=== PATIENT | male | born 1955 | race African-American/Black ===

== ENCOUNTER 2017-04-13 17:01 | Inpatient (IN) | payer MEDICARE, MEDICAID ==
[~2017-04-13] VITALS: Ht 172.7 cm; Wt 76.2 kg
--- NOTE | 2017-04-13 17:10 | NUR ---
pt medically cleared. will be transfer to u at 1830 per [facility] stock supervisor ok.
[2017-04-13] MEDS ORDERED: TRAV5DRO EACHEYE (17:11)
[2017-04-13] MEDS ORDERED: BUPR150T5 PO (17:11)
[2017-04-13] MEDS ORDERED: TRAM50TA2 PO (17:11)
[2017-04-13] MEDS ORDERED: AMPH10CA3 PO (17:11)
[2017-04-13] MEDS ORDERED: TAMS0.4C34 PO (17:11)
[2017-04-13] MEDS ORDERED: LORA2TAB PO (17:11)
[2017-04-13] MEDS ORDERED: METO-356 PO (17:11)
[2017-04-13] MEDS ORDERED: AMLO10TA2 PO (17:11)
[2017-04-13] MEDS ORDERED: FLUT1DIS28 IH (17:11)
[2017-04-13] MEDS ORDERED: OXYC40TA50 PO (17:11)
[2017-04-13] MEDS ORDERED: ALBU8.5H8 IH (17:11)
[2017-04-13] MEDS ORDERED: RISP0.5T20 PO (17:11)
--- NOTE | 2017-04-13 17:35 | NUR ---
hospital dinner tray provided for pt.
--- NOTE | 2017-04-13 18:30 | NUR ---
PT ARRIVED TO UNIT AT THIS TIME ON GURNEY ACCOMPANIED BY ER NURSE. CALM AND COOPERATIVE AT THIS TIME.
[2017-04-13 18:40] VITALS: BP 137/81
[2017-04-13] MEDS ORDERED: MAGNESIUM HYDROXIDE 30 ML LIQUID UDC PO PRN (18:45)
[2017-04-13] MEDS ORDERED: ACETAMINOPHEN 325 MG TABLET PO PRN (18:45)
[2017-04-13] MEDS ORDERED: MAG HYDROX/AL HYDROX/SIMETH 30 ML LIQUID UDC PO PRN (18:45)
[2017-04-13] MEDS ORDERED: TEMAZEPAM 7.5 MG CAPSULE PO PRN (18:45)
--- NOTE | 2017-04-13 20:00 | NUR ---
RECEIVED PATIENT IN HIS ROOM IN BED. HE WAS NOTED A/O X 4. HE WAS NOTED CALM AND COOPERATIVE. ABLE TO WALK USING A FRONT WHEEL WALKER. CONTINUE WITH SI. HE STATED "I WILL RUN INTO TRAFFIC." HOWEVER, HE WAS ABLE TO CFS. HE IS ON A 5150 HOLD FOR DTS. HOLD STARTED ON 04/13/17 AT 1420 AND WILL END ON 04/16/17 AT 1420. PATIENT WAS MEDICALLY CLEARED AT [facility] AND [facility] AT APPROX 1830. PATIENT WAS TESTED POSITIVE FOR URINE COCAINE. HE STATED THAT HE USE COCAINE ONE WEEK AGO. PATIENT WAS COMPLIANT WITH ADMISSION PAPERS. PT IS UNDER THE CARE OF DR MENDES. WILL CONTINUE TO MONITOR.
--- NOTE | 2017-04-13 20:30 | NUR ---
PATIENT REFUSED BODY ASSESSMENT. ENCOURAGED X1, HOWEVER, INEFFECTIVE. HE STATED, "THERE IS NOTHING WRONG WITH MY BODY." WILL CONTINUE TO MONITOR.
[2017-04-13 20:53] VITALS: BP 119/69
[2017-04-13] MEDS ORDERED: TRAMADOL HCL 50 MG TABLET PO PRN (21:15)
[2017-04-13] MEDS ORDERED: Medication Not On Formulary EA (Oxycodone Hcl (Oxycontin) 40 MG) PO SCH (21:15)
[2017-04-13] MEDS: LAMOTRIGINE 25 MG TABLET PO SCH (21:15)
[2017-04-13] MEDS: AMLODIPINE 10 MG TABLET PO SCH (21:15)
[2017-04-13] MEDS ORDERED: MIRTAZAPINE 15 MG TABLET ONE (21:27)
[2017-04-13] MEDS: MIRTAZAPINE 15 MG TABLET PO SCH (21:56)
[2017-04-13] MEDS ORDERED: AMLODIPINE 5 MG TABLET ONE (22:09)
--- NOTE | 2017-04-13 22:15 | NUR ---
MEDICATION WERE RECONCILED BY DR RAJPUT. PT WAS SEEN AND EVALUATED BY DR. MENDES. PT WAS PUT ON LAMICTAL 25MG PO TID AND REMERON 15MG QHS. PATIENT REFUSED LAMICTAL AND ALSO REFUSED AMLODIPINE 10MG (B/P STABLE AT THIS TIME). HE WAS ALSO OFFERED TRAMADOL 50MG PO PRN FOR C/O LOWER BACK PAIN 09/09, HOWEVER, HE REFUSED. WILL CONTINUE TO MONITOR.
[2017-04-14] MEDS ORDERED: ALBUTEROL SULFATE 8 GM HFA.AER.AD IH SCH
[2017-04-14 01:44] VITALS: BP 119/69
[2017-04-14] MEDS: LORAZEPAM 1 MG TABLET PO PRN ×3 (03:49→20:26)
--- NOTE | 2017-04-14 06:00 | NUR ---
PATIENT SLEPT FOR APPROX 8.30HRS THROUGH THE NIGHT. SKIN ASSESSMENT DONE. SKIN WARM DRY AND INTACT. PT NOTED DEMANDING, NEEDY. WILL CONTINUE TO MONITOR
[2017-04-14 07:30] VITALS: BP 119/80
[2017-04-14] MEDS: TAMSULOSIN HCL 0.4 MG CAP.SR.24H PO SCH (08:50)
[2017-04-14] MEDS: METOPROLOL SUCCINATE XL 25 MG TAB.SR.24H PO SCH (08:57)
[2017-04-14] MEDS: FLUTICASONE/VILANTEROL 1 EACH BLST.W.DEV INH SCH (08:57)
[2017-04-14] MEDS: LAMOTRIGINE 25 MG TABLET PO SCH ×3 (08:57→16:26)
[2017-04-14] MEDS ORDERED: FLUTICASONE/SALMETEROL 250/50 INHALER IH SCH (09:00)
[2017-04-14] MEDS ORDERED: ALBUTEROL SULFATE 2.5 MG/3 ML NEBU NEB PRN (10:00)
[2017-04-14] MEDS ORDERED: HYDROCODONE/APAP 5-325MG TABLET PO PRN (12:00)
--- NOTE | 2017-04-14 15:03 | NUR ---
Noted patient was pretended to fall on the hallway,camera was reviewed , he put him self on the floor.vital sign taken,b/p 120/75,98.7f 80, 19 .MD notified.x-ray was ordered.
[2017-04-14] MEDS ORDERED: OXYCODONE HCL 20 MG TAB.SR.12H PO SCH (17:00)
[2017-04-14] MEDS ORDERED: OXYCODONE HCL 40 MG TAB.SR.12H PO SCH ×2 (17:00)
[2017-04-14 17:04] VITALS: BP 120/75
[2017-04-14 19:47] VITALS: BP 135/76
--- NOTE | 2017-04-14 20:00 | NUR ---
PATIENT REFUSED BLOOD DRAWN, MULTIPLE REDIRECTION GIVEN. YET INEFFECTIVE.
[2017-04-14] MEDS: MIRTAZAPINE 15 MG TABLET PO SCH (20:26)
[2017-04-14] MEDS: AMLODIPINE 10 MG TABLET PO SCH (21:00)
[2017-04-14] MEDS ORDERED: TRAVOPROST 0.004% OPHT DROP 2.5 ML BOTTLE EACHEYE SCH (21:00)
[2017-04-14] MEDS: LATANOPROST OPHT DROP 2.5 ML BOTTLE EACHEYE SCH (21:02)
--- NOTE | 2017-04-14 21:30 | NUR ---
RECEIVED PATIENT IN HIS ROOM. HE WAS NOTED A/O X 3. ABLE TO MAKE HIS NEEDS KNOW. CONTINENT OF BLADDER AND BOWEL. HE IS NOW USING A WHEELCHAIR FOR MOBILITY. HE WAS NOTED IRRITABLE, ARGUMENTATIVE, HE STATED, "THE DOCTOR IS NOT GIVING ME THE RIGHT AMOUNT OF MY PAIN MEDICATION." "HE DOES NOT GET IT." PT WAS NOTED WITH LABILE BX. DEPRESSED MOOD, BLUNTED AFFECT. NEEDY. HE DENIES SI/HI OR THOUGHT AND PLAN TO HARM SELF. HE IS ABLE TO CONTRACT FOR SAFETY. PT REFUSED NORVASC 10MG PO QHS FOR HTN. B/P:135/76 AND PULSE 70BPM. BUT ABLE TO COMPLY WITH REST OF QHS MEDICATION INCLUDING REMERON 15MG PO QHS. HE REQUESTED ATIVAN FOR AGITATION. ATIVAN 1MG PO PRN WAS GIVEN AT APPROX 2030 PER NURSE ASSESSMENT. SAFETY EMPHASIS, FALL PRECAUTION. PT WAS REASSURED. WILL CONTINUE TO MONITOR.
[2017-04-15] MEDS ORDERED: OXYCODONE HCL 20 MG TAB.SR.12H PO SCH (06:00)
[2017-04-15] MEDS: OXYCODONE HCL 20 MG TAB.SR.12H PO SCH ×2 (06:17→17:02)
--- NOTE | 2017-04-15 06:38 | NUR ---
PATIENT REFUSED BLOOD DRAWN. MULTIPLE REDIRECTION GIVEN, YET INEFFECTIVE. WILL CONTINUE TO ENCOURAGER.
--- NOTE | 2017-04-15 06:47 | NUR ---
PATIENT SLEPT FOR APPROX 7.00 HRS THROUGH THE NIGHT. OXYCONTIN 20MG PO Q12HRS WAS GIVEN ROUTINE. WILL CONTINUE TO MONITOR CLOSELY.
[2017-04-15 07:39] LABS: BASOPHILS # (AUTO) 0.1 K/uL (0.0-8.0); BASOPHILS % (AUTO) 1.1 % (0.0-2.0); EOSINOPHILS # (AUTO) 0.1 K/uL (0.0-0.7); EOSINOPHILS % (AUTO) 2.1 % (0.0-7.0); HEMATOCRIT 40.9 % (36.7-47.1); HEMOGLOBIN 13.8 g/dL (12.5-16.3); LYMPHOCYTES # (AUTO) 1.6 K/uL (20.0-40.0); LYMPHOCYTES % (AUTO) 28.5 % (20.5-51.5); MEAN CORPUSCULAR HEMOGLOBIN 31.5 uug (23.8-33.4); MEAN CORPUSCULAR HGB CONC 34 g/dL (32.5-36.3); MEAN CORPUSCULAR VOLUME 93.7 fL (73.0-96.2); MONOCYTES # (AUTO) 0.9 K/uL (2.0-10.0); MONOCYTES % (AUTO) 15.4 % (0.0-11.0); NEUTROPHILS % (AUTO) 52.9 % (38.5-71.5); PLATELET COUNT (AUTO) 264 K/uL (152-348); RED BLOOD CELL COUNT(AUTO) 4.37 MIL/uL (4.06-5.63); WHITE BLOOD COUNT (AUTO) 5.7 K/uL (3.6-10.2)
[2017-04-15 07:45] VITALS: BP 136/88
[2017-04-15 07:51] LABS: BILIRUBIN,TOTAL 0.8 mg/dL (0.2-1.0); CREATININE 1.1 mg/dL (0.6-1.3); PHOSPHOROUS 3.7 mg/dL (2.5-4.9); POTASSIUM 4.2 mmol/L (3.5-5.1); TOTAL PROTEIN, SERUM 7.1 g/dL (6.4-8.2)
[2017-04-15] MEDS: METOPROLOL SUCCINATE XL 25 MG TAB.SR.24H PO SCH (08:32)
[2017-04-15] MEDS: FLUTICASONE/VILANTEROL 1 EACH BLST.W.DEV INH SCH (08:32)
[2017-04-15] MEDS: TAMSULOSIN HCL 0.4 MG CAP.SR.24H PO SCH (08:32)
[2017-04-15] MEDS: LAMOTRIGINE 25 MG TABLET PO SCH ×3 (08:32→17:01)
[2017-04-15 08:43] LABS: EOSINOPHILS % (MANUAL) 3 % (0-8); LYMPHOCYTES % (MANUAL) 32 % (20-40); MONOCYTES % (MANUAL) 7 % (2-10); NEUTROPHILS % (MANUAL) 58 % (42-75)
[2017-04-15] MEDS: LORAZEPAM 1 MG TABLET PO PRN ×2 (13:12→23:49)
--- NOTE | 2017-04-15 15:39 | NUR ---
Firearms Report: Physician Office Nurse completed and submitted [employer] Firearms Report on 04/15/17.
[2017-04-15 16:40] VITALS: BP 126/66
[2017-04-15] MEDS: LATANOPROST OPHT DROP 2.5 ML BOTTLE EACHEYE SCH (20:34)
[2017-04-15] MEDS: MIRTAZAPINE 15 MG TABLET PO SCH (20:34)
[2017-04-15] MEDS: AMLODIPINE 10 MG TABLET PO SCH (20:40)
[2017-04-15 20:47] VITALS: BP 125/57
--- NOTE | 2017-04-15 21:15 | NUR ---
RECEIVED PATIENT IN HIS ROOM. HE WAS NOTED A/O X 3. EASILY IRRITABLE, DEMANDING. HE DENIES SI OR PLAN TO HARM SELF. HE REFUSED NORVASC 10MG PO QHS; HOWEVER TOOK REST OF QHS MEDICATION. SAFETY EMPHASIS TO CONTINUE USING WHEELCHAIR FOR MOBILITY. FALL PRECAUTION. WILL CONTINUE TO MONITOR CLOSELY.
--- NOTE | 2017-04-15 23:50 | NUR ---
PATIENT CAME TO THE NURSING STATION C/O SEVERE PAIN IN HIS RIGHT WRIST. X RAY RIGHT WRIST WAS ORDERED STAT. AWAITING FOR RESULTS. HE WAS ALSO NOTED YELLING, DEMANDING, ANXIOUS AGITATIVE. ATIVAN 1MG PO PRN WAS GIVEN FOR AGITATION. WILL CONTINUE TO MONITOR CLOSELY.
[2017-04-16] MEDS: OXYCODONE HCL 20 MG TAB.SR.12H PO SCH (05:01)
[2017-04-16 08:00] VITALS: BP 120/75
[2017-04-16] MEDS: METOPROLOL SUCCINATE XL 25 MG TAB.SR.24H PO SCH ×2 (09:00→09:46)
[2017-04-16] MEDS: LAMOTRIGINE 25 MG TABLET PO SCH ×3 (09:47→18:12)
[2017-04-16] MEDS: TAMSULOSIN HCL 0.4 MG CAP.SR.24H PO SCH (09:47)
[2017-04-16] MEDS: FLUTICASONE/VILANTEROL 1 EACH BLST.W.DEV INH SCH (09:55)
--- NOTE | 2017-04-16 11:34 | NUR ---
Initial Discharge Instructions: Pt currently resides in a homeless snf [[address] [place] [address]; [phone]]. Pt reports that he would like to be placed in a Rehab facility in order to prepare for a back surgery; however, is willing to return to the snf if no placement can be found. Pt is not consenting to contact his son, Melvin Araiza ([phone]) at this time. SW will speak with pt and MD regarding appropriate discharge plans for this patient. SW will form a safe and proper discharge.
[2017-04-16] MEDS: OXYCODONE HCL 5 MG TABLET PO PRN ×2 (12:44→20:39)
[2017-04-16 16:00] VITALS: BP 135/82
--- NOTE | 2017-04-16 16:11 | NUR ---
[facility] Note: Subjective: "Nurses just don't care. They say I'll meet you in 20 minutes then they leave you alone. Why do they do that?" Objective: Pt appeared frustrated and angry as evidenced by his intense eye contact, loud tone, and complaints about his extended hold, which is a lie. Pt came to group late, leaving to make a phone call then again to use the restroom. Pt nodded in agreement when the other group member spoke about negligent care. Assessment: SW will encourage pt to establish coping skills for his suicidal ideation and chronic pain. Plan: Pt will attend group again tomorrow. Pt will advocate for himself if he feels he is not getting the treatment he deserves.
[2017-04-16] MEDS: OXYCODONE HCL 10 MG TAB.SR.12H PO SCH (17:28)
[2017-04-16] MEDS ORDERED: OXYCODONE HCL 20 MG TAB.SR.12H PO SCH (18:00)
[2017-04-16] MEDS: AMLODIPINE 10 MG TABLET PO SCH (21:00)
[2017-04-16] MEDS: LATANOPROST OPHT DROP 2.5 ML BOTTLE EACHEYE SCH (21:54)
[2017-04-16] MEDS: MIRTAZAPINE 15 MG TABLET PO SCH (21:55)
[2017-04-17] MEDS: OXYCODONE HCL 5 MG TABLET PO PRN ×3 (02:47→15:32)
[2017-04-17] MEDS: LORAZEPAM 1 MG TABLET PO PRN (03:36)
[2017-04-17] MEDS: OXYCODONE HCL 10 MG TAB.SR.12H PO SCH (06:15)
[2017-04-17 07:30] VITALS: BP 128/64
[2017-04-17] MEDS: FLUTICASONE/VILANTEROL 1 EACH BLST.W.DEV INH SCH (09:00)
[2017-04-17] MEDS: METOPROLOL SUCCINATE XL 25 MG TAB.SR.24H PO SCH (09:00)
[2017-04-17] MEDS: TAMSULOSIN HCL 0.4 MG CAP.SR.24H PO SCH (09:11)
[2017-04-17] MEDS: LAMOTRIGINE 25 MG TABLET PO SCH ×2 (09:18→14:37)
--- NOTE | 2017-04-17 12:22 | NUR ---
Discharge Note: Patient was released by the [facility] during his 14-day Probable Cause Hearing. Patient will be discharged to [facility] [[address] [place] [id number]; ] via ambulance. Spoke with Kim at the facility who states they are ready to accept the patient today. Patient is aware and agreeable with discharge plans. Patient will be following-up with Dr. Cronin (Attorney) and Dr. Cao (Psychiatrist) at the facility. Patient was provided with a brief substance abuse intervention and referred to [facility] , [facility] , and [facility] .
--- NOTE | 2017-04-17 16:10 | NUR ---
Gps/Land Commissioner-Call [facility], report given to Angélica Norton. All belongings was given back to patient. Adequate relief from his lower back pain. Discharged via ambulance in good spirit with no new c/o offered.
== END 2017-04-17 16:15 | DRG 885 ==
LOC: ER 17:02 → GPS 18:23
PROVIDERS: ADMIT Psychiatry & Neurology Psychiatry
DX: F31.32 Bipolar disorder, current episode depressed, moderate (principal); B19.20 Unspecified viral hepatitis C without hepatic coma; G89.29 Other chronic pain; H26.9 Unspecified cataract; Z79.899 Other long term (current) drug therapy; M54.5 Low back pain; M48.00 Spinal stenosis, site unspecified; Z91.5 Personal history of self-harm; Z82.49 Family history of ischemic heart disease and other diseases of the circulatory system; H40.9 Unspecified glaucoma
CPT/HCPCS: 36415; 73100; 73501; 83735; 84100; 84443; 85025; 97116; 97530; A4663

== ENCOUNTER 2018-08-20 20:08 | Emergency (ER) | payer MEDICARE, MEDICAID ==
[~2018-08-20] VITALS: Ht 172.7 cm; Wt 68.9 kg
[~2018-08-20 20:08] MED LIST: ALBU8.5H8 IH; AMLO10TA7 PO; FLUT1DIS28 IH; METO-356 PO; OXYC40TA50 PO; TAMS0.4C34 PO; TRAM50TA2 PO; TRAV5DRO EACHEYE
[2018-08-20] MEDS ORDERED: GABA-534 PO (20:36)
--- NOTE | 2018-08-20 20:50 | NUR ---
Patient c/o left shoulder pain x4 months. Denies trauma to area
--- NOTE | 2018-08-20 22:40 | NUR ---
Gave meal to patient.
[2018-08-20] MEDS ORDERED: LOPERAMIDE HCL 2 MG CAPSULE PO ONE (22:45)
[2018-08-20] MEDS ORDERED: LOPERAMIDE HCL 2 MG CAPSULE ONE (22:46)
--- NOTE | 2018-08-20 22:54 | NUR ---
Patient given written and verbal discharge instructions. Patient verbalizes understanding of instructions. Patient is ambulatory with steady gait. Refuses offer of [facility] placement. Patient given list of available shelters in surrounding area.
[2018-08-20 22:58] VITALS: BP 138/92
--- NOTE | 2018-08-21 09:47 | NUR ---
8:40am: SW consult requested by ED RN Wade, who stated that patient was in the ED waiting room. Patient was seen in the ED last night, and was discharged, but was waiting to meet with this SW in the morning. Patient was not in the ED waiting room, but instead had gone outside to the hospital courtyard. SW met with patient in the courtyard, who was receptive to meeting with this SW. Patient is a 62 year old male who wanted to talk to this SW about substance abuse treatment programs. SW asked patient if the ED staff had provided him with the homeless resource packet upon discharge, and patient stated "yes they did". Patient then pulled the packet out of his backpack. SW reviewed the packet with him and showed him the list of substance abuse programs in the packet. Patient asked if SW could contact the [facility], which SW agreed. SW informed patient that she will work on referring patient to [facility], and would then get back to patient with a response from the [facility]. Patient agreed, and said he would continue to wait in the courtyard. SW contact Ezequiel at [phone], who asked for SW to fax over patient face sheet and ED report. 9:15am: PORSCHE faxed over the requested information to [facility] at [phone]. 9:40am: PORSCHE spoke with Ezequiel regarding patient's needs. SW then went to provide patient with an update, but the patient was not in the courtyard. PORSCHE checked with security orderly Norm in the hospital lobby, and security informed this SW that patient had just walked out through the main doors of the hospital. POSRCHE checked outside, and in the ED waiting room, but patient was no where to be found. PORSCHE then noticed that patient was about [address], walking away from the hospital. PORSCHE informed Ezequiel that the patient had walked away. PORSCHE also informed security orderly Norm that patient had walked away. No further interventions needed at this time.
--- NOTE | 2018-08-21 11:22 | NUR ---
11:00am: PORSCHE informed by ED staff that patient has returned to the hospital and is asking to see this SW. SW met with patient and informed him that when SW came to provide him with an update earlier (see previous SW notes), SW saw patient a block down the street, walking away from the hospital. Therefore, SW cancelled the referral to [facility]. Patient expressed disappointment. SW explained to the patient that if patient wanted SW to follow through on the help he was requesting, that he had to wait for the SW in the ED waiting room or in the hospital courtyard. SW asked patient if he wanted SW to once again ask [facility] to assess his referral, or if he wanted to follow-up on his own with the list of referrals that the nurses had provided him last night upon discharge. Patient asked SW to ask [facility] to review his referral again. SW agreed, and asked patient to wait for SW either in the ED waiting room or in the courtyard. Patient expressed understanding. Security Alvarez and Emiliano informed. SW contact Ezequiel at [facility] again, who stated that they would review patient's case and get back to SW.
--- NOTE | 2018-08-21 13:16 | NUR ---
11:55am: mid level business analyst Norm informed this SW that patient had told him that he no longer wants any help from the social organization professor and that he was going to leave. Patient left the hospital discharged to self, with steady gait. No further interventions needed at this time. SW notified Ezequiel at [facility] to once again disregard the referral that was faxed to him.
== END 2018-08-20 22:58 | disposition home or self-care (01) ==
LOC: ER 20:08
DX: M19.012 Primary osteoarthritis, left shoulder (principal); I10 Essential (primary) hypertension; E78.00 Pure hypercholesterolemia, unspecified; J44.9 Chronic obstructive pulmonary disease, unspecified; F17.200 Nicotine dependence, unspecified, uncomplicated; F12.10 Cannabis abuse, uncomplicated; F15.10 Other stimulant abuse, uncomplicated; Z59.0 Homelessness; Z88.5 Allergy status to narcotic agent; Z79.891 Long term (current) use of opiate analgesic; Z79.899 Other long term (current) drug therapy
CPT/HCPCS: 73030; A4663

== ENCOUNTER 2019-01-14 08:11 | Emergency (ER) | payer MEDICARE, MEDICAID ==
[~2019-01-14] VITALS: Ht 172.7 cm; Wt 71.2 kg
[~2019-01-14 08:11] MED LIST changes: +GABA-534 PO; -OXYC40TA50 PO; -TRAM50TA2 PO; -TRAV5DRO EACHEYE
--- NOTE | 2019-01-14 08:20 | NUR ---
PT IS IN ROOM #2B. DR MICHELLE EVALUATED THE PT.
[2019-01-14] MEDS ORDERED: DULO60CA45 PO (08:27)
[2019-01-14] MEDS ORDERED: LURA80TA PO (08:27)
--- NOTE | 2019-01-14 09:03 | NUR ---
VARNISH MAKER HELPER ELA EVALUATED THE PT.
--- NOTE | 2019-01-14 09:25 | NUR ---
PT WAS D/C'D TO HIS OWN LOCATION AFTER UNIVERSITY INTERN EVALUATION. D/C INSTRUCTIONS GIVEN TO THE PT.
[2019-01-14 09:26] VITALS: BP 135/71
--- NOTE | 2019-01-14 10:04 | NUR ---
8:55am: SW arrived to the ED, for SS consultation request from ALBA Olvera. SW met with Dr. Reece and discussed patient's case. SW then met with patient, who was in his assigned ED bed, having breakfast that was provided to him by ED nurse. Patient is a 63 year old -[place] male, alert, oriented x 4. Patient came to the ED today for abdominal pain. Patient frequents different emergency rooms, and patient admitted to using different ED's for his medical needs. Patient states that he is homeless and wants information on substance abuse treatment programs. Patient has a cell phone, and patient stated that he would like to contact the programs himself. In addition to the substance abuse programs, SW discussed some of the additional community resources for homeless individuals that SW could provide the patient, and patient expressed agreement. SW also provided him with education on some of the healthcare clinics that he can utilize for his ongoing medical needs. SW discussed fdc options and other homeless community resources, and patient stated "no I'm not interested in any of the housing stuff". Patient had appropriate clothing, and stated not needing any additional clothes. Patient stated that he would like to return to his previous living arrangements, and declined shelters. SW provided patient with a homeless resource packet which included the following resources: a list of year-round homeless shelters, [facility], [address] [place] [address], ; [facility], [address] [place] [address], ; [facility], [address] [place] [address], [phone]; and [facility], [address] [place] [address], ; the [facility] homeless directory which provides a list of places that individuals can go to throughout the week for hot meals, sack lunches, food pantries, and showers; a list of mental health clinics: [facility] [address] [place] [address], ; [facility] [address] [place] [address], ; [place] [address], ; medical clinics: [facility] [address] [place] [facility] [address], [place]. [place], ; [facility] [address], [address], [place] [address]; [facility] [address] [facility] [place] [address], ; and substance abuse programs: [facility] Substance Abuse Self-helpline ; [facility] ; [facility] ; [facility] ; [facility] ; [facility] [phone]; [facility] [phone], and [facility] . SW also provided patient with information on locations of pharmacies. Patient was receptive to all these resources and signed the homeless patient waiver form. Patient stated he did not need any transportation services, and was fine walking. Patient was cooperative during interview with this SW. Patient maintained appropriate eye contact throughout interview, affect, mood, and behavior were WNL. Dr. Reece informed of above. No further SS interventions needed at this time.
== END 2019-01-14 09:27 | disposition home or self-care (01) ==
LOC: ER 08:11
DX: K40.20 Bilateral inguinal hernia, without obstruction or gangrene, not specified as recurrent (principal); F15.10 Other stimulant abuse, uncomplicated; F12.10 Cannabis abuse, uncomplicated; F14.10 Cocaine abuse, uncomplicated; I10 Essential (primary) hypertension; E78.5 Hyperlipidemia, unspecified; J44.9 Chronic obstructive pulmonary disease, unspecified; F17.200 Nicotine dependence, unspecified, uncomplicated; Z88.5 Allergy status to narcotic agent; Z59.0 Homelessness; Z79.899 Other long term (current) drug therapy
CPT/HCPCS: A4663

== ENCOUNTER 2021-03-06 08:20 | Emergency (ER) | payer MEDICARE, OTHER ==
[~2021-03-06 08:20] MED LIST changes: +AMLO10TA59 PO; -AMLO10TA7 PO; +DULO60CA45 PO; +LURA80TA PO
--- NOTE | 2021-03-06 11:26 | NUR ---
PT LEFT WITHOUT BEEN TRIAGED.
== END 2021-03-06 11:27 | disposition left against medical advice (07) ==
LOC: ER 08:20
DX: Z53.21 Procedure and treatment not carried out due to patient leaving prior to being seen by health care provider (principal)